=== PATIENT | male | born 1965 | race Caucasian/White ===

== ENCOUNTER 2020-07-01 19:58 | Emergency (ER) | payer OTHER ==
[2020-07-01] MEDS ORDERED: Acetaminophen/HYDROcodone 325-5 MG Tab PO ONE (20:20)
--- NOTE | 2020-07-01 20:27 | EDM.PDOC ---
ED HPI GENERAL MEDICAL PROBLEM - General Chief Complaint: General Stated Complaint: LEG INJURY Time Seen by Provider: 07/01/20 20:15 - History of Present Illness INITIAL COMMENTS - FREE TEXT/NARRATIVE: injured right ankle at 1920 missing a step in the dark. Denies any other trauma/head injury. CMS +, pedal pulse present. pain 7/10. Onset: Today Onset Date: 07/01/20 Onset Time: 19:20 Location: Reports: Lower Extremity, Right Quality: Reports: Ache, Throbbing Improves with: Reports: None Worsens with: Reports: Movement Associated Symptoms: Reports: No Other Symptoms Treatments RE[employer]ER[employer]ER: Reports: Splint(s) Left Ankle Pain Score (Numeric/FACES): 2 - Related Data Allergies Allergy/AdvReac Type Severity Reaction Status Date / Time No Known Allergies Allergy Verified 07/01/20 20:25 Home Meds: Home Meds NK [No Known Home Meds] 07/01/20 [History] ED ROS GENERAL - Review of Systems Review Of Systems: See Below Constitutional: Reports: No Symptoms HEENT: Reports: No Symptoms Respiratory: Reports: No Symptoms Cardiovascular: Reports: No Symptoms Endocrine: Reports: No Symptoms GI/Abdominal: Reports: No Symptoms Musculoskeletal: Reports: Leg Pain, Foot Pain, Joint Swelling Skin: Reports: No Symptoms Neurological: Reports: No Symptoms Psychiatric: Reports: No Symptoms ED EXAM, GENERAL - Physical Exam Exam: See Below Exam Limited By: No Limitations General Appearance: Alert, No Apparent Distress Nose: Normal Inspection Throat/Mouth: Normal Voice Head: Atraumatic Neck: Normal Inspection, Non-Tender Respiratory/Chest: No Respiratory Distress Cardiovascular: Normal Peripheral Pulses Peripheral Pulses: 3+: Posterior Tibial (L), Posterior Tibial (R), Dorsalis Pedis (L), Dorsalis Pedis (R) Back Exam: Normal Inspection Extremities: Normal Capillary Refill, Leg Pain (CMS +, pedal pulses present) Neurological: Alert, Oriented Psychiatric: Normal Affect, Normal Mood Skin Exam: Warm, Dry Course - Vital Signs Last Recorded V/S: Last Vital Signs Temp 97.3 F 07/01/20 20:27 Pulse 72 07/01/20 20:27 Resp 18 07/01/20 20:27 BP 135/99 H 07/01/20 20:27 Pulse Ox 98 07/01/20 20:27 - Orders/Labs/Meds Orders: Active Orders 24 hr Category Date Time Status Ankle 2V Lt [CR] Stat Exams 07/01/20 20:21 Taken Tibia Fibula Lt [CR] Stat Exams 07/01/20 20:23 Taken Meds: Medications Discontinued Medications Generic Name Dose Route Start Last Admin Trade Name Gregorio PRN Reason Stop Dose Admin Hydrocodone Bitart/Acetaminophen 2 tab 07/01/20 20:20 07/01/20 20:26 Turner 325-5 Mg PO 07/01/20 20:21 2 tab ONETIME ONE Administration Departure - Departure Time of Disposition: 21:56 Disposition: DC/Tfer to Acute Hospital 02 Condition: Good Clinical Impression: Subluxation of ankle joint Qualifiers: Encounter type: initial encounter Laterality: left Qualified Code(s): S93.02XA - Subluxation of left ankle joint, initial encounter Left fibular fracture Qualifiers: Encounter type: initial encounter Fibula location: distal Fracture type: closed Fracture morphology: other fracture Qualified Code(s): S82.832A - Other fracture of upper and lower end of left fibula, initial encounter for closed fracture - Discharge Information *PRESCRIPTION DRUG MONITORING PROGRAM REVIEWED*: Not Applicable *COPY OF PRESCRIPTION DRUG MONITORING REPORT IN PATIENT VERNELL: Not Applicable Instructions: Cast or Splint Care, Adult Forms: ED Department Discharge Additional Instructions: go to ED, accepting Physician Dr. Monae Sepsis Event Note (ED) - Focused Exam Vital Signs: Vital Signs Temp Pulse Resp BP Pulse Ox 07/01/20 20:27 97.3 F 72 18 135/99 H 98 ED Communication - Discussed Case With (1) Discussed Case With (1): Other (Andrea Pool) Date: 07/01/20 (spoke with Dr. Aneesh pool) Time Called: 21:11 ( acceptting patient in ED) - My Orders Last 24 Hours: My Active Orders 07/01/20 20:21 Ankle 2V Lt [CR] Stat 07/01/20 20:23 Tibia Fibula Lt [CR] Stat - Assessment/Plan Last 24 Hours: My Active Orders 07/01/20 20:21 Ankle 2V Lt [CR] Stat 07/01/20 20:23 Tibia Fibula Lt [CR] Stat Plan: Spoke with Dr. Monae in [facility], he will accept the patient for reduction and further treatment of the moderate subluxation at the tibiotalar joint and midly comminuted distal fibular shaft fracture with mild displacement.
--- NOTE | 2020-07-02 08:35 | CR ---
DATE OF SERVICE: 07/01/20 CLINICAL DATA: ankle injury LEFT ANKLE: There is a comminuted displaced fracture through the distal fibula diametaphysis. There is posterior displacement and posterior angulation of the distal fragments with respect to the proximal. There is also subluxation of the tibiotalar joint with lateral subluxation of the talus with respect to the distal tibia. No other acute abnormalities. [id number] [facility]
--- NOTE | 2020-07-02 08:38 | CR ---
DATE OF SERVICE: 07/01/20 CLINICAL DATA: trauma LEFT LOWER LEG: The fracture subluxation of the distal fibula and tibiotalar joint is again seen. No other acute abnormalities. [id number] [facility]
== END 2020-07-01 22:00 ==
LOC: LB.ED 19:58
DX: S93.02XA Subluxation of left ankle joint, initial encounter (principal); S82.832A Other fracture of upper and lower end of left fibula, initial encounter for closed fracture; X58.XXXA Exposure to other specified factors, initial encounter
CPT/HCPCS: 73590; 73600; 99284; A9270